=== PATIENT | female | born 1955 | race Caucasian/White ===

== ENCOUNTER 2025-04-30 12:05 | Outpatient (CLI) | payer OTHER ==
--- NOTE | 2025-04-30 15:04 | RADIOLOGY REPORT ---
EXAM: MR MRI UPPER EXTREMITY RIGHT HISTORY: CALCIFIC TENDINITIS OF RIGHT SHOULDER,ADHESIVE CAPSULITIS OF RIGHT SHOULDER COMPARISON: None TECHNIQUE: Multiplanar, multisequence MRI imaging of the right shoulder was performed. FINDINGS: Rotator cuff: Multiple globular foci of signal void within the distal supraspinatus and subscapularis tendons. Intermediate signal throughout the supraspinatus and subscapularis tendons. No discrete tear. Infraspinatus and teres minor tendons are intact. AC joint: Large complex AC joint effusion. Bone marrow edema throughout the distal clavicle. Moderate joint space narrowing. Glenohumeral joint: Mild degenerative changes. Labrum: No obvious labral tear within this non-arthrographic study. Joint fluid: No significant glenohumeral joint fluid. Bursa: Trace subacromial subdeltoid bursitis. Muscles: No significant atrophy or intramuscular lesion. Neurovascular bundle: Unremarkable. Soft tissues: Intermediate signal of the rotator cuff interval. IMPRESSION: Moderate calcific tendinopathy of the supraspinatus and subscapularis tendons. No significant rotator cuff tear. Large AC joint effusion with extensive bone marrow edema at the distal clavicle. The differential includes an active arthropathy, septic arthritis, or occult distal clavicle fracture that is not well appreciated on MRI. Please correlate clinically and consider x-ray or CT scan to better assess the bone. Intermediate signal at of the rotator cuff interval, a nonspecific finding that can be associated with adhesive capsulitis.
== END 2025-04-30 23:59 | disposition home or self-care (01) ==
LOC: MRI02 12:05
PROVIDERS: ATTEND Family Medicine Sports Medicine
DX: M19.011 Primary osteoarthritis, right shoulder (principal); M75.31 Calcific tendinitis of right shoulder; M75.01 Adhesive capsulitis of right shoulder; M65.311 Trigger thumb, right thumb; M25.411 Effusion, right shoulder; M25.811 Other specified joint disorders, right shoulder; M67.813 Other specified disorders of tendon, right shoulder; M77.8 Other enthesopathies, not elsewhere classified; R60.0 Localized edema
CPT/HCPCS: 73221